=== PATIENT | female | born 1960 | race Caucasian/White ===

== ENCOUNTER 2017-07-03 21:18 | Inpatient (IN) | payer MEDICAID ==
[~2017-07-03] VITALS: Ht 144.8 cm; Wt 57.7 kg
[2017-07-03 21:18] VITALS: BP 88/58
--- NOTE | 2017-07-03 21:18 | NUR ---
2112 BIBA ALS TO ER BED 3
--- NOTE | 2017-07-03 21:18 | NUR ---
PATIENT PRESENTS TO ED WITH C/O N/V AND GENERALIZED WEAKNESS X1 DAY WHERE TODAY'S WEAKNESS IS AT ITS WORST. PT HAS HX OF STOMACH CANER AND IS UNDEROING TX AT THIS TIME. PICC LINE RIGHT AC. DENIES N/V/D; SKIN IS PINK/WARM/DRY; AAOX4 WITH EVEN AND STEADY GAIT; LUNGS CLEAR BL; HR EVEN AND REGULAR; PT DENIES ANY FEVER, CP, SOB, OR COUGH AT THIS TIME; PATIENT STATES PAIN OF 0/10 AT THIS TIME; VSS; PATIENT POSITIONED FOR COMFORT; HOB ELEVATED; BEDRAILS UP X2; BED DOWN. ER MD MADE AWARE OF PT STATUS. CONTINUE TO MONITOR.
[2017-07-03] MEDS ORDERED: NACL 0.9% 2,000 ML IV SCH (21:21)
[2017-07-03] MEDS ORDERED: KETOROLAC 30 MG/ML VIAL IVP ONE (22:30)
[2017-07-03 22:33] LABS: BASOPHILS % (AUTO) 0.2 % (0.0-2.0); EOSINOPHILS % (AUTO) 0.3 % (0.0-4.0); HEMATOCRIT 22.3 % (36-48); HEMOGLOBIN 7.1 g/dL (12.0-16.0); LYMPHOCYTES # (AUTO) 0.9 K/uL (2.5-16.5); LYMPHOCYTES % (AUTO) 5.9 % (20.5-51.1); MEAN CORPUSCULAR HEMOGLOBIN 26 pg (27-31); MEAN CORPUSCULAR HGB CONC 32 g/dL (33-37); MEAN CORPUSCULAR VOLUME 81.5 fL (80-94); MONOCYTES % (AUTO) 6.6 % (1.7-9.3); NEUTROPHILS # (AUTO) 13.8 K/uL (1.8-7.7); PLATELET COUNT (AUTO) 283 K/uL (140-450); RED BLOOD CELL COUNT(AUTO) 2.74 MIL/uL (4.20-5.40); RED CELL DISTRIBUTION WIDTH 18.7 % (11.6-13.7); WHITE BLOOD COUNT (AUTO) 15.9 K/uL (4.8-10.8)
[2017-07-03] MEDS ORDERED: NACL 0.9% 1,000 ML IV ONE (22:50)
--- NOTE | 2017-07-03 22:59 | NUR ---
PRESSURE BAGS APPLIED TO, TWO, 1L NS BAGS FOR INFUSION PER DR FINLEY'S ORDERS TO INCREASE PT'S BP.
[2017-07-03 23:02] LABS: PROTHROMBIN TIME 12.3 secs (10.8-13.4)
[2017-07-03 23:49] LABS: ALBUMIN 1.6 g/dL (3.4-5.0); ANION GAP 14.5 (8-16); CARBON DIOXIDE 22.2 mmol/L (21-32); CREATININE 0.5 mg/dL (0.6-1.3)
[2017-07-03 23:50] LABS: LIPASE 49 U/L (73-393)
[2017-07-04] MEDS ORDERED: VANCOMYCIN 1,000 MG in DEXTROSE 5% 250 ML IV ONE ×2
[2017-07-04] MEDS ORDERED: NACL 0.9% 1,000 ML IV ONE
[2017-07-04] MEDS ORDERED: PIPERACILLIN/TAZOBACTAM 3.375 GM in DEXTROSE 5% 50 ML IV ONE ×2
[2017-07-04 00:04] LABS: POTASSIUM 2.7 mmol/L (3.5-5.1)
[2017-07-04] MEDS ORDERED: POTASSIUM CHLORIDE 10 MEQ TABER PO ONE (00:05)
[2017-07-04] MEDS ORDERED: KCL 20 MEQ/WATER INJ PREMIX 100 ML IV ONE (00:05)
[2017-07-04] MEDS ORDERED: PIPERACILLIN/TAZOBACTAM 3.375 GM VIAL IV ONE (00:40)
[2017-07-04 01:24] LABS: TOTAL BILIRUBIN 0.5 mg/dL (0.0-1.0)
[2017-07-04] MEDS ORDERED: DOCUSATE SODIUM 100 MG GELCAP PO PRN (01:45)
[2017-07-04] MEDS ORDERED: ONDANSETRON 4 MG/2 ML VIAL IM/IVP PRN (01:45)
[2017-07-04] MEDS ORDERED: MORPHINE SULFATE 4 MG/ML SYR IVP PRN (01:45)
[2017-07-04] MEDS ORDERED: ACETAMINOPHEN 325 MG TAB PO PRN (01:45)
[2017-07-04] MEDS ORDERED: HYDROcodone/APAP 7.5/325 MG 1 TAB PO PRN (01:45)
[2017-07-04] MEDS ORDERED: VANCOMYCIN 1,000 MG VIAL ONE ×2 (01:49→01:51)
[2017-07-04] MEDS ORDERED: metroNIDAZOLE 500 MG/NS PREMIX 100 ML IV SCH (03:00)
[2017-07-04] MEDS ORDERED: KCL 20 MEQ/WATER INJ PREMIX 200 ML IV SCH (03:00)
--- NOTE | 2017-07-04 03:45 | NUR ---
ADMITTED A 57 Y/O FEMALE WITH C/C OF GENERALIZED WEAKNESS FROM ER VIA [facility]. TRANSFERRED PATIENT FROM [facility] TO BED USING BED SHEET WITH MAXIMUM ASSIST. ROUTINE ADMISSION CARE DONE AND CARRY OUT ORDERS. PERSONAL BELONGINGS CHECKED. FALL PRECAUTION IMPLEMENTED. CALL LIGHT WITHIN REACH. PLAN OF CARE EXPLAINED THROUGH BUDGET CONTROLLER. WILL CONTINUE TO MONITOR.
[2017-07-04] MEDS ORDERED: DOCU-299 PO (03:49)
[2017-07-04] MEDS ORDERED: MEX2.5 PO (03:49)
[2017-07-04] MEDS ORDERED: COM5 PO (03:49)
[2017-07-04] MEDS ORDERED: PANT40EC PO (03:49)
[2017-07-04] MEDS ORDERED: OSC500 PO (03:49)
[2017-07-04] MEDS ORDERED: CYAN1TAB82 PO (03:49)
[2017-07-04] MEDS ORDERED: FERR325E14 PO (03:49)
[2017-07-04] MEDS ORDERED: PROCHLORPERAZINE 5 MG TAB PO PRN (03:50)
--- NOTE | 2017-07-04 03:50 | NUR ---
REPORT GIVEN AND CARE TRANSFERED TO [facility]. PT TRANSPORTED VIA GURNEY WITH VSS.
--- NOTE | 2017-07-04 04:45 | NUR ---
CALL RESIDENT TO VERIFIED MEDICATION . ORDERED TO DC NS 60ML PER HR .
[2017-07-04] MEDS: LEVOFLOXACIN 750 MG/D5W PREMIX 150 ML IV SCH (06:13)
[2017-07-04 06:42] LABS: BASOPHILS % (AUTO) 0.2 % (0.0-2.0); EOSINOPHILS # (AUTO) 0.1 K/uL (0-0.4); EOSINOPHILS % (AUTO) 0.7 % (0.0-4.0); HEMATOCRIT 23.2 % (36-48); HEMOGLOBIN 7.5 g/dL (12.0-16.0); LYMPHOCYTES # (AUTO) 1.1 K/uL (2.5-16.5); LYMPHOCYTES % (AUTO) 7.7 % (20.5-51.1); MEAN CORPUSCULAR HEMOGLOBIN 27 pg (27-31); MEAN CORPUSCULAR HGB CONC 32 g/dL (33-37); MEAN CORPUSCULAR VOLUME 82.5 fL (80-94); MONOCYTES # (AUTO) 0.8 K/uL (0.8-1.0); MONOCYTES % (AUTO) 5.4 % (1.7-9.3); NEUTROPHILS # (AUTO) 12.2 K/uL (1.8-7.7); PLATELET COUNT (AUTO) 272 K/uL (140-450); RED BLOOD CELL COUNT(AUTO) 2.81 MIL/uL (4.20-5.40); RED CELL DISTRIBUTION WIDTH 18.8 % (11.6-13.7); WHITE BLOOD COUNT (AUTO) 14.1 K/uL (4.8-10.8)
[2017-07-04] MEDS ORDERED: SODIUM FERRIC GLUCONATE 12.5 MG/ML AMP IV ONE (06:54)
[2017-07-04] MEDS: SODIUM FERRIC GLUCONATE 125 MG in NACL 0.9% 100 ML IV SCH (06:58)
--- NOTE | 2017-07-04 07:36 | NUR ---
ENDORSEMENT GIVEN TO AM SHIFT NURSE FOR CONTINUITY OF CARE. PATIENT IN STABLE CONDITION.
--- NOTE | 2017-07-04 07:40 | NUR ---
RECEIVED REPORT FOR THE PT FROM CASE MANAGERS NURSEGRACE, PT IS ASLEEP LYING ON THE BED, SIDE RAILS ARE UP AND CALL LIGHT WITHIN REACH. PT HAS A PICC LINE ON RIGHT ARM WITH FERRLECIT RUNNING VIA IV PIGGYBACK AT A RATE OF 110ML/HR, INTACT AND PATENT AND PT TOLERATED IT. NO SIGN OF DISTRESS NOTED AND WILL CONTINUE TO MONITOR.
--- NOTE | 2017-07-04 07:48 | NUR ---
PT IS COMORAN SPEAKING, AWAKE AND SEATED ON THE BED, WITH BREAKFAST ON TRAY AND IN FRONT, VITAL SIGNS TAKEN, BP IS NOTED 86/65 AND DOCTOR WAS INFORMED ABOUT IT. DR. SOSA SAID THAT THE BP RESULT IS EXPECTED FOR THE PT'S CONDITION. PT WAS SEEN AND TALKED TO BY THE PAPER PRODUCTION ENGINEER DOCTORS DR. REYES, WHO SERVED THE TRADITIONAL CHINESE HERBALIST AND DR. SOSA. NO SIGN OF DISTRESS NOTED AND OTHER VITAL SIGNS ARE STABLE. SIDE RAILS ARE UP AND CALL LIGHT WITHIN REACH. WILL CONTINUE TO MONITOR.
[2017-07-04 07:52] LABS: APPEARANCE,URINE CLEAR (CLEAR); COLOR,URINE STRAW (YELLOW)
[2017-07-04 07:53] LABS: BILIRUBIN,URINE NEGATIVE (NEGATIVE); BLOOD, URINE NEGATIVE (NEGATIVE); LEUKOCYTE ESTERASE ,URINE NEGATIVE (NEGATIVE); NITRITE, URINE NEGATIVE (NEGATIVE); UGLUCOSE NEGATIVE (NEGATIVE)
[2017-07-04 08:00] VITALS: BP 86/65
[2017-07-04] MEDS: FERROUS SULFATE 325 MG TABEC PO SCH (08:44)
[2017-07-04] MEDS: DOCUSATE SODIUM 100 MG GELCAP PO SCH ×2 (08:44→20:50)
[2017-07-04] MEDS: PANTOPRAZOLE 40 MG TABEC PO SCH (08:44)
[2017-07-04] MEDS: CALCIUM CARBONATE 500 MG TAB PO SCH (08:44)
[2017-07-04] MEDS: LACTOBACILLUS RHAMNOSUS GG 1 EACH CAP PO SCH (08:45)
--- NOTE | 2017-07-04 08:45 | NUR ---
PT IS AWAKE AND LYING ON THE BED, MEDICATIONS GIVEN AND PT TOLERATED IT WELL. NO SIGN OF DISTRESS NOTED, SIDE ARILS ARE UP AND CALL LIGHT WITHIN REACH. WILL CONTINUE TO MONITOR.
[2017-07-04 08:49] LABS: BARBITURATE, URINE NEGATIVE ng/ml (NEG <=200); BENZODIAZEPINE, URINE NEGATIVE ng/mL (NEG <=200); CANNABINOID, URINE NEGATIVE ng/mL (NEG <=50); COCAINE, URINE NEGATIVE ng/mL (NEG <=300); OPIATE, URINE NEGATIVE ng/mL (NEG <=2000); PHENCYCLIDINE SCREEN,URINE NEGATIVE ng/mL (NEG <=25)
[2017-07-04] MEDS ORDERED: FOLIC ACID PO SCH (09:00)
[2017-07-04] MEDS ORDERED: METHOTREXATE 2.5 MG TAB PO SCH (09:00)
[2017-07-04] MEDS ORDERED: CYANOCOBALAMIN PO SCH (09:00)
--- NOTE | 2017-07-04 09:00 | NUR ---
PT IS AWAKE AND WAS TAKEN BY MARTA LUZ, FOR A CT SCAN OF HEAD WITHOUT CONTRAST. ASSISTED PT TO SIT ON THE WHEELCHAIR AND SECURED AND MADE COMFORTABLE. PT'S IV LINE WAS TEMPORARILY UNHOOKED FROM MAIN LINE FOR THE CT SCAN PROCEDURE. NO SIGN OF DISTRESS NOTED.
--- NOTE | 2017-07-04 09:10 | NUR ---
PT WAS BACK IN THE ROOM FROM THE CT SCAN OF HEAD WITHOUT CONTRAST. PT WAS ASSISTED BACK TO BED AND WAS MADE COMFORTABLE. IV LINE WAS HOOKED UP AND SIDE RAILS ARE UP. CALL LIGHT WITHIN REACH AND NO SIGN OF DISTRESS NOTED. WILL MONITOR
--- NOTE | 2017-07-04 11:00 | NUR ---
INFORMED DR. GUZMÁN THAT PT IS IN PAIN WITH A PAIN RATE OF 9/10, PT'S BP WAS CHECKED AND RESULT IS 74/43, LOW. DR. GUZMÁN SAID THAT HE WILL ORDER TORADOL TO GIVE TO THE PT.
--- NOTE | 2017-07-04 11:11 | NUR ---
PT 'S SON CALLED AND THE PT SPOKE TO HIM. NO SIGN OF DISTRESS NOTED ON THE PT. WILL MONITOR.
--- NOTE | 2017-07-04 11:18 | NUR ---
PER [facility] AT [facility]. SEND REVIEWS TO [facility] FAXED INITIAL REVIEW TO [facility] FAX [phone] PHONE [phone] OP 3 REFERENCE NUMBER [id number]
[2017-07-04] MEDS: KETOROLAC 30 MG/ML VIAL IVP PRN (11:25)
--- NOTE | 2017-07-04 11:27 | NUR ---
FRANCISCO FROM [facility] IS TALKING WITH THE PT AND MAKING A NUTRITIONAL ASSESSMENT, PT IS RESPONDING APPROPRIATELY
--- NOTE | 2017-07-04 11:28 | NUR ---
PATIENT IS AWAKE AND TALKING TO FRANCISCO FROM [facility], MEDICATION GIVEN VIA IV PUSH AND PT TOLERATED IT WELL. CALL LIGHT WITHIN REACH AND WILL CONTINUE TO MONITOR.
[2017-07-04 12:00] VITALS: BP 83/45
--- NOTE | 2017-07-04 12:15 | NUR ---
PT IS AWAKE AND LYING ON THE BED, VITAL SIGNS TAKEN AND NO SIGN OF DISTRESS NOTED, CALL LIGHT WITHIN REACH AND WILL CONTINUE TO MONITOR.
--- NOTE | 2017-07-04 12:30 | NUR ---
PT IS AWAKE AND SEATED ON THE BED HAVING LUNCH, NO SIGN OF DISTRESS NOTED ON THE PT, CALL LIGHT WITHIN REACH AND SIDE RAILS ARE UP. WILL CONTINUE TO MONITOR.
[2017-07-04] MEDS ORDERED: PROMETHAZINE 25 MG/ML VIAL IM PRN (12:45)
[2017-07-04] MEDS ORDERED: METOCLOPRAMIDE 10 MG/2 ML INJ VIAL IVP PRN (12:45)
--- NOTE | 2017-07-04 13:45 | NUR ---
PT IS AWAKE AND LYING ON THE BED WITH SON ON THE BEDSIDE, NO SIGN OF DISTRESS NOTED ON THE PT, SIDE RAILS ARE UP AND CALL LIGHT WITHIN REACH. WILL CONTINUE TO MONITOR.
--- NOTE | 2017-07-04 13:55 | NUR ---
07/04/17 RD INITIAL ASSESSMENT COMPLETED PLEASE REFER TO NUTRITION ASSESSMENT UNDER CARE ACTIVITY FOR ESTIMATED NUTRITIONAL NEEDS. 1. CONTINUE REGULAR DIET WITH BOOST TID TOLERATED 2. PROVIDE SNACKS BID (MORNING AND AFTERNOON) 3. PROVIDED NUTRITION EDUCATION FOR HEALTHY EATING AND TIPS TO INCREASE PO INTAKE. 4. RD TO FOLLOW-UP 2-3 DAYS, HIGH RISK FRANCISCO CAMPBELL RD
[2017-07-04 14:03] LABS: MAGNESIUM 1.7 mg/dL (1.8-2.4); PHOSPHORUS 2.8 mg/dL (2.5-4.9)
--- NOTE | 2017-07-04 14:45 | NUR ---
PT IS AWAKE AND LYING ON THE BED, NO SIGN OF DISTRESS NOTED AND CALL LIGHT WITHIN REACH. WILL CONTINUE TO MONITOR.
[2017-07-04 15:16] LABS: ANION GAP 20.5 (8-16); CARBON DIOXIDE 15.5 mmol/L (21-32); CREATININE 0.6 mg/dL (0.6-1.3)
[2017-07-04 15:25] LABS: FREE T4 (FREE THYROXINE) 1.45 ng/dL (0.76-1.46); MAGNESIUM 1.9 mg/dL (1.8-2.4); PHOSPHORUS 2.4 mg/dL (2.5-4.9)
[2017-07-04 16:00] VITALS: BP 90/64
--- NOTE | 2017-07-04 16:10 | NUR ---
PT IS AWAKE WITH PT ON THE BEDSIDE AND VITAL SIGNS TAKEN, NO SIGN OF DISTRESS NOTED. WILL MONITOR.
[2017-07-04 17:47] LABS: THYROID STIMULATING HORMONE 3.6 uIU/mL (0.34-3.74)
--- NOTE | 2017-07-04 19:15 | NUR ---
PT IS AWAKE AND LYING ON THE BED, SIDE RAILS ARE UP AND CALL LIGHT WITHIN REACH AND NO SIGN OF DISTRESS NOTED, A NEW BAG OF NS WAS STARTED AT 60ML/HR.
--- NOTE | 2017-07-04 19:30 | NUR ---
ENDORSED PT FOR CONTINUITY OF CARE TO [employer] STILL OPERATOR NURSE, PT IS AWAKE AND STABLE AT THIS TIME.
--- NOTE | 2017-07-04 19:35 | NUR ---
RECEIVED REPORT FROM DAY SHIFT, PATIENT RESTING IN BED, AWAKE ALERT ORIENTED X4, NO S/S OF DISTRESS NOTED, PICC LINE TO THE RT UPPER ARM, DRESSING DRY AND INTACT, INFUSING NS AT 60ML/HR. PLAN OF CARE DISCUSSED, PATIENT VERBALIZED UNDERSTANDING, CALL LIGHT WITHIN REACH, SAFETY MEASURE ENSURED, WILL CONTINUE TO MONITOR.
[2017-07-04] MEDS: NACL 0.9% 1,000 ML IV SCH ×2 (19:43→19:45)
[2017-07-04 20:00] VITALS: BP 97/67
--- NOTE | 2017-07-04 20:54 | NUR ---
HEADACHE 04/26, TYLENOL GIVEN ORDERED, DUE MEDICATION ALSO ADMINISTERED. PATIENT TOLERATED WELL. NO S/S OF DISTRESS NOTED, RESPIRATION EVEN AND UNLABORED, CALL LIGHT WITHIN REACH, SAFETY MEASURE ENSURED, WILL CONTINUE TO MONITOR.
--- NOTE | 2017-07-04 22:20 | NUR ---
PATIENT IS SLEEPING, NO S/S OF DISTRESS NOTED, RESPIRATION EVEN AND UNLABORED, CALL LIGHT WITHIN REACH, SAFETY MEASURE ENSURED, WILL CONTINUE TO MONITOR.
[2017-07-05] VITALS: BP 92/63
--- NOTE | 2017-07-05 00:08 | NUR ---
PATIENT WAS SLEEPING, EASY TO AROUSE, VITAL SIGNS STABLE, NO S/S OF DISTRESS NOTED, RESPIRATION EVEN AND UNLABORED, CALL LIGHT WITHIN REACH, SAFETY MEASURE ENSURED, WILL CONTINUE TO MONITOR.
--- NOTE | 2017-07-05 02:40 | NUR ---
PATIENT IS SLEEPING, NO S/S OF DISTRESS NOTED, RESPIRATION EVEN AND UNLABORED, CALL LIGHT WITHIN REACH, SAFETY MEASURE ENSURED, WILL CONTINUE TO MONITOR.
[2017-07-05] MEDS: LEVOFLOXACIN 750 MG/D5W PREMIX 150 ML IV SCH (03:49)
[2017-07-05] MEDS: KETOROLAC 30 MG/ML VIAL IVP PRN (03:49)
[2017-07-05 04:00] VITALS: BP 87/54
--- NOTE | 2017-07-05 04:03 | NUR ---
BP 87/54, HR 88, INFORMED DR. RUVALCABA, AND DR. RUVALCABA SAID," THAT'S FINE, MAP 65 OR ABOVE IS OKAY."
[2017-07-05] MEDS: SODIUM FERRIC GLUCONATE 125 MG in NACL 0.9% 100 ML IV SCH (05:45)
--- NOTE | 2017-07-05 05:50 | NUR ---
PICC LINE FLUSHED OKAY, BUT NO BLOOD RETURN. DRESSING INTACT AND CLEAN. WILL CONTINUE TO MONITOR.
[2017-07-05 06:19] LABS: T4 (THYROXINE) 7.2 ug/dL (4.5-12.0)
--- NOTE | 2017-07-05 06:39 | NUR ---
PATIENT IS SLEEPING, NO S/S OF DISTRESS NOTED, RESPIRATION EVEN AND UNLABORED, CALL LIGHT WITHIN REACH, SAFETY MEASURE ENSURED, WILL CONTINUE TO MONITOR.
[2017-07-05 07:08] LABS: BASOPHILS % (AUTO) 0.5 % (0.0-2.0); EOSINOPHILS # (AUTO) 0.2 K/uL (0-0.4); HEMATOCRIT 22.1 % (36-48); HEMOGLOBIN 7.1 g/dL (12.0-16.0); LYMPHOCYTES # (AUTO) 1.4 K/uL (2.5-16.5); LYMPHOCYTES % (AUTO) 14.5 % (20.5-51.1); MEAN CORPUSCULAR HEMOGLOBIN 26 pg (27-31); MEAN CORPUSCULAR HGB CONC 32 g/dL (33-37); MEAN CORPUSCULAR VOLUME 81.9 fL (80-94); MONOCYTES # (AUTO) 0.5 K/uL (0.8-1.0); MONOCYTES % (AUTO) 5.4 % (1.7-9.3); NEUTROPHILS # (AUTO) 7.7 K/uL (1.8-7.7); NEUTROPHILS % (AUTO) 77.6 % (42.2-75.2); PLATELET COUNT (AUTO) 295 K/uL (140-450); RED CELL DISTRIBUTION WIDTH 18.2 % (11.6-13.7); WHITE BLOOD COUNT (AUTO) 9.9 K/uL (4.8-10.8)
[2017-07-05 07:19] LABS: ANION GAP 13.3 (8-16); CARBON DIOXIDE 19.2 mmol/L (21-32); CREATININE 0.4 mg/dL (0.6-1.3); POTASSIUM 3.5 mmol/L (3.5-5.1)
[2017-07-05 07:27] LABS: MAGNESIUM 1.7 mg/dL (1.8-2.4); PHOSPHORUS 2.3 mg/dL (2.5-4.9)
--- NOTE | 2017-07-05 07:30 | NUR ---
RECEIVED ON BED AAOX4. NO SOB NOTED. NO C/O PAIN AT THIS TIME. WITH LEONARDO PICC LINE PATENT AND INTACT. CHEST DIMINISHED AIR ENTRY TO THE BASES, OTHERWISE CLEAR. ABDOMEN SOFT, BOWEL SOUNDS PRESENT.NO EDEMA NOTED. INSTRUCTED PT TO CALL FOR ASSISTANCE, CALL LIGHT WITHIN REACH, PT VERBALIZED UNDERSTANDING.
--- NOTE | 2017-07-05 07:31 | NUR ---
ENDORSED PLAN OF CARE TO DAY SHIFT, PATIENT IS IN STABLE CONDITION.
[2017-07-05 08:00] VITALS: BP 85/58
[2017-07-05 08:30] VITALS: BP 95/63
[2017-07-05] MEDS ORDERED: FOLIC ACID 1 MG TAB PO SCH (09:00)
[2017-07-05] MEDS: LACTOBACILLUS RHAMNOSUS GG 1 EACH CAP PO SCH (09:00)
[2017-07-05] MEDS: PANTOPRAZOLE 40 MG TABEC PO SCH (09:00)
[2017-07-05] MEDS: DOCUSATE SODIUM 100 MG GELCAP PO SCH (09:00)
[2017-07-05] MEDS ORDERED: CYANOCOBALAMIN 100 MCG TAB PO SCH (09:00)
--- NOTE | 2017-07-05 09:00 | NUR ---
PT CONSUMED 75% ON BREAKFAST SERVED, FOOD TOLERATED WELL.
[2017-07-05] MEDS: CALCIUM CARBONATE 500 MG TAB PO SCH (09:01)
[2017-07-05] MEDS: FERROUS SULFATE 325 MG TABEC PO SCH (09:02)
--- NOTE | 2017-07-05 11:00 | NUR ---
PT ABLE TO SIT AT THE BEDSIDE CHAIR WITH ASSISTANCE, ACTIVITY TOLERATED WELL.
[2017-07-05 12:00] VITALS: BP 93/61
[2017-07-05] MEDS ORDERED: MAGNESIUM OXIDE 400 MG TAB PO SCH ×2 (12:00→12:40)
[2017-07-05] MEDS ORDERED: SODIUM PHOS / POTASSIUM PHOS 1 PKT PDR PO SCH ×2 (12:00→12:40)
[2017-07-05] MEDS ORDERED: METO-485 PO (12:06)
[2017-07-05 12:20] LABS: FOLIC ACID > 20.00 ng/mL (>3.0)
--- NOTE | 2017-07-05 13:50 | NUR ---
DISCHARGE INSTRUCTIONS AND PRESCRIPTIONS GIVEN TO PT AND SARAN LEAL, BOTH VERBALIZED FULL UNDERSTANDING OF THE TEACHINGS GIVEN AND THE NEED TO FOLLOW UP WITH PCP WITHIN 7 DAYS.
--- NOTE | 2017-07-05 13:55 | NUR ---
PT WHEELED TO THE PARKING LOT IN STABLE CONDITION. NO SOB NOTED. NO COMPLAINTS MADE. RT UPPER ARM PICC LINE LOCKED, DRESSING DRY AND INTACT. PT IS D/C HOME WITH SON.
[2017-07-05 17:28] LABS: FERRITIN 1115 ng/mL (15-150); TRANSFERRIN 105 mg/dL (200-370)
[2017-07-05] MEDS ORDERED: HYDROCORTISONE 10 MG TAB PO SCH (21:00)
[2017-07-07] MEDS ORDERED: METHOTREXATE 2.5 MG TAB PO SCH (09:00)
== END 2017-07-05 13:55 | disposition home or self-care (01) | DRG 425 ==
LOC: MED 21:18 → MTU 07-04 01:48 → EDBEDREQSVC 07-04 01:56
PROVIDERS: ADMIT Family Medicine; ATTEND Family Medicine
DX: E87.6 Hypokalemia (principal); N17.0 Acute kidney failure with tubular necrosis; R65.11 Systemic inflammatory response syndrome (SIRS) of non-infectious origin with acute organ dysfunction; G93.41 Metabolic encephalopathy; E43 Unspecified severe protein-calorie malnutrition; C16.9 Malignant neoplasm of stomach, unspecified; C78.7 Secondary malignant neoplasm of liver and intrahepatic bile duct; E27.3 Drug-induced adrenocortical insufficiency; I95.9 Hypotension, unspecified; D63.8 Anemia in other chronic diseases classified elsewhere; E87.1 Hypo-osmolality and hyponatremia; M06.9 Rheumatoid arthritis, unspecified; E11.9 Type 2 diabetes mellitus without complications; E88.09 Other disorders of plasma-protein metabolism, not elsewhere classified; E83.39 Other disorders of phosphorus metabolism; E83.42 Hypomagnesemia; Z68.27 Body mass index [BMI] 27.0-27.9, adult; Z79.899 Other long term (current) drug therapy; Z92.21 Personal history of antineoplastic chemotherapy; T45.1X5A Adverse effect of antineoplastic and immunosuppressive drugs, initial encounter
CPT/HCPCS: 36415; 36600; 70450; 71045; 80048; 80053; 80305; 81003; 82150; 82550; 82553; 82607; 82728; 82746; 82803; 83036; 83540; 83605; 83690; 83735; 83874; 83880; 84100; 84436; 84439; 84443; 84479; 84484; 85025; 85045; 85610; 85730; 86886; 86900; 86901; 87040; 87081; 87086; 93005; 96361; 96365; 96366; 96367; 96368; 96375; 97110; 99285; J1885; J1956; J2270; J2543; J2916; J3370; J3480; J3490; J7030